=== PATIENT | female | born 1965 | race Caucasian/White ===

== ENCOUNTER → 2019-03-22 10:08 | Outpatient (BNVA) | payer BC, MEDICARE, SELFPAY | PROVIDERS: Family Provider Nurse Practitioner Primary Care; PCP Nurse Practitioner Primary Care; Visit Provider Internal Medicine Rheumatology | DX: M34.9 Systemic sclerosis, unspecified (principal); Z79.899 Other long term (current) drug therapy; I73.00 Raynaud's syndrome without gangrene; Z11.59 Encounter for screening for other viral diseases; M79.7 Fibromyalgia | CPT/HCPCS: 99214 ==

== ENCOUNTER → 2019-06-28 10:53 | Outpatient (BNVA) | payer BC, MEDICARE, SELFPAY | PROVIDERS: Family Provider Nurse Practitioner Primary Care; PCP Nurse Practitioner Primary Care; Visit Provider Internal Medicine Rheumatology | DX: M34.9 Systemic sclerosis, unspecified (principal); Z79.899 Other long term (current) drug therapy; I73.00 Raynaud's syndrome without gangrene; M79.7 Fibromyalgia; L81.9 Disorder of pigmentation, unspecified | CPT/HCPCS: 99214 ==

== ENCOUNTER 2019-07-09 15:43 | Outpatient (CLI) | payer MEDICARE, SELFPAY ==
--- NOTE | 2019-07-09 15:51 | XR_ITS ---
WS: [id number] CHEST 2 VIEWS HISTORY: Shortness of breath COMPARISON: 05/05/2017 Lungs: Clear with no abnormality. No pleural effusion or pneumothorax. Cardiac size: Normal. Mediastinum/Aorta: Normal mediastinum. Bones: Normal. XR/XR chest 2V* [id number] IMPRESSION: Normal chest.
== END 2019-07-09 15:44 | disposition home or self-care (01) ==
LOC: RADWPI 15:51
PROVIDERS: Family Provider Nurse Practitioner Primary Care; PCP Nurse Practitioner Primary Care; Visit Provider Nurse Practitioner Primary Care
DX: R06.02 Shortness of breath (principal)
CPT/HCPCS: 71046

== ENCOUNTER → 2019-10-25 09:53 | Outpatient (BNVA) | payer MEDICARE, SELFPAY | PROVIDERS: Family Provider Nurse Practitioner Primary Care; PCP Nurse Practitioner Primary Care; Visit Provider Internal Medicine Rheumatology | DX: M34.9 Systemic sclerosis, unspecified (principal); Z79.899 Other long term (current) drug therapy; I73.00 Raynaud's syndrome without gangrene; M79.7 Fibromyalgia; L72.9 Follicular cyst of the skin and subcutaneous tissue, unspecified | CPT/HCPCS: 10060; 87070; 87075; 87205; 99214 ==

== ENCOUNTER → 2020-02-14 10:42 | Outpatient (BNVA) | payer MEDICARE, SELFPAY | PROVIDERS: Family Provider Nurse Practitioner Primary Care; PCP Nurse Practitioner Primary Care; Visit Provider Internal Medicine Rheumatology | DX: M34.9 Systemic sclerosis, unspecified (principal); Z79.899 Other long term (current) drug therapy; Z11.1 Encounter for screening for respiratory tuberculosis; I73.00 Raynaud's syndrome without gangrene; M79.7 Fibromyalgia | CPT/HCPCS: 99214 ==

== ENCOUNTER → 2020-05-28 12:02 | Outpatient (BNVA) | payer MEDICARE, SELFPAY | PROVIDERS: Family Provider Nurse Practitioner Primary Care; PCP Nurse Practitioner Primary Care; Visit Provider Internal Medicine Critical Care Medicine | DX: I27.20 Pulmonary hypertension, unspecified (principal) | CPT/HCPCS: 87635 ==

== ENCOUNTER 2020-06-03 12:53 | Outpatient (CLI) | payer MEDICARE, SELFPAY ==
--- NOTE | 2020-06-03 13:40 | PFTS_ITS ---
Date of Study:06/03/20 Date of Dictation: 06/03/2020 MECHANICS: Prebronchodilator forced vital capacity (FVC) is normal. Prebronchodilator forced expiratory volume in one second (FEV1) is normal. FEV1/FVC is normal. There is no postbronchodilator study. FLOW VOLUME LOOP: Normal. LUNG VOLUMES: Not measured DIFFUSING CAPACITY FOR CARBON MONOXIDE: Mildly reduced 77% . INTERPRETATION: The spirometry is normal. Lung volumes not measured and there is mild gas transfer defect. Please correlate clinically. MTDD
== END 2020-06-03 12:54 | disposition home or self-care (01) ==
LOC: RT 12:55
PROVIDERS: PCP Nurse Practitioner Primary Care; Visit Provider Internal Medicine Critical Care Medicine
DX: M34.9 Systemic sclerosis, unspecified (principal)
CPT/HCPCS: 94010; 94729

== ENCOUNTER → 2020-06-12 10:42 | Outpatient (BNVA) | payer MEDICARE, SELFPAY | PROVIDERS: PCP Nurse Practitioner Primary Care; Visit Provider Internal Medicine Rheumatology | DX: M34.9 Systemic sclerosis, unspecified (principal); I73.00 Raynaud's syndrome without gangrene; Z79.899 Other long term (current) drug therapy | CPT/HCPCS: 99214 ==

== ENCOUNTER → 2020-12-10 15:12 | Outpatient (BNVA) | payer MEDICARE, SELFPAY | PROVIDERS: PCP Nurse Practitioner Primary Care; Visit Provider Internal Medicine Rheumatology | DX: M34.9 Systemic sclerosis, unspecified (principal); I73.00 Raynaud's syndrome without gangrene; Z79.899 Other long term (current) drug therapy; Z86.16 Personal history of COVID-19 | CPT/HCPCS: 99214 ==

== ENCOUNTER → 2021-04-06 14:49 | Outpatient (BNVA) | payer MEDICARE, SELFPAY | PROVIDERS: PCP Nurse Practitioner Primary Care; Visit Provider Internal Medicine Rheumatology | DX: M34.9 Systemic sclerosis, unspecified (principal); Z79.899 Other long term (current) drug therapy; I73.00 Raynaud's syndrome without gangrene; Z91.14 Patient's other noncompliance with medication regimen | CPT/HCPCS: 99214 ==

== ENCOUNTER → 2021-06-08 10:39 | Outpatient (BNVA) | payer MEDICARE, SELFPAY | PROVIDERS: PCP Nurse Practitioner Primary Care; Visit Provider Internal Medicine Critical Care Medicine | DX: M34.9 Systemic sclerosis, unspecified (principal); I27.20 Pulmonary hypertension, unspecified; Z86.16 Personal history of COVID-19; M33.90 Dermatopolymyositis, unspecified, organ involvement unspecified | CPT/HCPCS: 71046; 99213 ==

== ENCOUNTER → 2021-07-09 14:01 | Outpatient (BNVA) | payer MEDICARE, SELFPAY | PROVIDERS: PCP Nurse Practitioner Primary Care; Visit Provider Internal Medicine Rheumatology | DX: M34.9 Systemic sclerosis, unspecified (principal); M19.90 Unspecified osteoarthritis, unspecified site; Z79.899 Other long term (current) drug therapy; I73.00 Raynaud's syndrome without gangrene | CPT/HCPCS: 99214 ==

== ENCOUNTER → 2021-09-17 11:29 | Outpatient (BNVA) | payer MEDICARE, SELFPAY | PROVIDERS: PCP Nurse Practitioner Primary Care; Visit Provider Internal Medicine Rheumatology | DX: M34.9 Systemic sclerosis, unspecified (principal); I73.00 Raynaud's syndrome without gangrene; M19.90 Unspecified osteoarthritis, unspecified site; Z79.899 Other long term (current) drug therapy | CPT/HCPCS: 99214 ==

== ENCOUNTER → 2021-12-17 14:36 | Outpatient (BNVA) | payer MEDICARE, SELFPAY | PROVIDERS: PCP Nurse Practitioner Primary Care; Visit Provider Internal Medicine Rheumatology | DX: M34.9 Systemic sclerosis, unspecified (principal); Z79.899 Other long term (current) drug therapy; I73.00 Raynaud's syndrome without gangrene; M19.90 Unspecified osteoarthritis, unspecified site | CPT/HCPCS: 99214 ==

== ENCOUNTER → 2022-03-17 13:19 | Outpatient (BNVA) | payer MEDICARE, SELFPAY | PROVIDERS: PCP Nurse Practitioner Primary Care; Visit Provider Internal Medicine Pulmonary Disease | DX: M34.9 Systemic sclerosis, unspecified (principal); Z79.899 Other long term (current) drug therapy; R06.09 Other forms of dyspnea; Z86.16 Personal history of COVID-19 | CPT/HCPCS: 99214 ==

== ENCOUNTER → 2022-03-17 13:19 | Outpatient (BNVA) | payer MEDICARE, SELFPAY | PROVIDERS: PCP Nurse Practitioner Primary Care; Visit Provider Internal Medicine Pulmonary Disease | DX: R06.02 Shortness of breath (principal); M34.9 Systemic sclerosis, unspecified; Z79.899 Other long term (current) drug therapy; U07.1 COVID-19; I73.00 Raynaud's syndrome without gangrene; R06.09 Other forms of dyspnea | CPT/HCPCS: 80076; 82565; 82785; 85025; 86003; 86140 ==

== ENCOUNTER 2022-04-14 09:56 | Outpatient (CLI) | payer MEDICARE, SELFPAY ==
--- NOTE | 2022-04-14 11:00 | USCV_ITS ---
Marvin Brian Age: 56 Gender: F : 1965 Exam Date: 04/14/2022 11:06 Ordering Phys: Cesario Patten MD Technologist: Lola Chun [place] [facility] [place]: scleroderma BP: 128 / 72 HR: 67 Rhythm: Sinus Technical Quality: Good MEASUREMENTS (Male / Female) Normal Values 2D ECHO LV Diastolic Diameter PLAX 4.4 cm 4.2 - 5.9 / 3.9 - 5.3 cm LV Systolic Diameter PLAX 2.1 cm IVS Diastolic Thickness 0.9 cm 0.6 - 1.0 / 0.6 - 0.9 cm IVS Systolic Thickness 1.7 cm LVPW Diastolic Thickness 0.9 cm 0.6 - 1.0 / 0.6 - 0.9 cm LVPW Systolic Thickness 1.3 cm LVOT Diameter 2.0 cm LV Ejection Fraction 2D Teich 84.0 % LV Ejection Fraction MOD 2C 78.2 % LV Ejection Fraction 2C AL 79.3 % LA Diameter 2.5 cm LA Width 3.2 cm LA Height 3.7 cm RA Width 2.3 cm RA Height 3.2 cm Aorta at Sinotubular Diameter 2.9 cm IVC Diameter 1.6 cm M-MODE MV E Point Septal Separation 0.7 cm DOPPLER AV Peak Velocity 110.0 cm/s LVOT Peak Velocity 89.0 cm/s AV Area Cont Eq vti 2.8 cm squared AV Area Cont Eq pk 2.6 cm squared MV Peak Velocity 84.0 cm/s MV Area PHT 3.6 cm squared Mitral E to A Ratio 1.1 MV E' Velocity 44.5 cm/s Mitral E to MV E' Ratio 11.6 Mitral E to LV E' Lateral Ratio 11.9 Mitral E to LV E' Septal Ratio 11.4 TR Peak Velocity 65.0 cm/s TR Peak Gradient 1.7 mmHg Right Atrial Pressure 5.0 mmHg Pulmonary Artery Systolic Pressu 6.7 mmHg PV Peak Velocity 74.0 cm/s RV Acceleration Time 0.1 s RV Ejection Time 0.3 s RV AcT/ET 0.5 FINDINGS Left Ventricle Normal left ventricular size and systolic function, EF 71 %. No regional wall motion abnormalities. Right Ventricle The right ventricle is normal in size and function. Right Atrium The right atrium is normal in size. Left Atrium The left atrium is normal in size. Mitral Valve Mild mitral valve regurgitation. Thickened mitral valve. Aortic Valve Thickened aortic valve. Tricuspid Valve No gross abnormalities noted Pulmonic Valve No gross abnormalities noted Pericardium Normal pericardium without effusion. Aorta Normal ascending aorta dimension. IVC Normal inferior vena cava. CONCLUSIONS Normal left ventricular size and systolic function, EF 71 %. No regional wall motion abnormalities. Mild mitral valve regurgitation. Thickened mitral valve. Thickened aortic valve. There is no pericardial effusion. There are no intracardiac masses. Compared to the study from 11/27/2018, there may not be a significant change Dr Jair Unger MD FACC (Electronically Signed) Final Date: 17 April 2022 19:20 S
== END 2022-04-14 09:57 | disposition home or self-care (01) ==
LOC: RT 10:00
PROVIDERS: PCP Nurse Practitioner Primary Care; Visit Provider Internal Medicine Pulmonary Disease
DX: I73.00 Raynaud's syndrome without gangrene (principal); M34.9 Systemic sclerosis, unspecified; I08.0 Rheumatic disorders of both mitral and aortic valves
CPT/HCPCS: 80076; 82565; 82785; 85025; 86003; 86140; 93306; 94010; 94726; 94729

== ENCOUNTER → 2022-04-19 13:29 | Outpatient (BNVA) | payer MEDICARE, SELFPAY | PROVIDERS: PCP Nurse Practitioner Primary Care; Visit Provider Internal Medicine Rheumatology | DX: M34.9 Systemic sclerosis, unspecified (principal); Z79.899 Other long term (current) drug therapy; M19.90 Unspecified osteoarthritis, unspecified site; I73.00 Raynaud's syndrome without gangrene | CPT/HCPCS: 99214 ==

== ENCOUNTER → 2022-07-08 09:28 | Outpatient (BNVA) | payer MEDICARE, SELFPAY | PROVIDERS: PCP Nurse Practitioner Primary Care; Visit Provider Internal Medicine Rheumatology | DX: M34.9 Systemic sclerosis, unspecified (principal); Z79.899 Other long term (current) drug therapy; M19.90 Unspecified osteoarthritis, unspecified site; I73.00 Raynaud's syndrome without gangrene | CPT/HCPCS: 99214 ==

== ENCOUNTER → 2022-10-13 09:54 | Outpatient (BNVA) | payer MEDICARE, SELFPAY | PROVIDERS: PCP Nurse Practitioner Primary Care; Visit Provider Internal Medicine Rheumatology | DX: Z79.899 Other long term (current) drug therapy (principal); M19.90 Unspecified osteoarthritis, unspecified site; L94.2 Calcinosis cutis; I73.00 Raynaud's syndrome without gangrene | CPT/HCPCS: 99214 ==

== ENCOUNTER → 2022-10-15 09:58 | Outpatient (BNVA) | payer MEDICARE, SELFPAY | PROVIDERS: PCP Nurse Practitioner Primary Care; Visit Provider Internal Medicine Pulmonary Disease | DX: M34.9 Systemic sclerosis, unspecified (principal); U07.1 COVID-19; R06.09 Other forms of dyspnea; J30.1 Allergic rhinitis due to pollen | CPT/HCPCS: 99214 ==

== ENCOUNTER 2022-10-29 12:49 | Outpatient (CLI) | payer MEDICARE, SELFPAY ==
--- NOTE | 2022-10-29 13:00 | CT_ITS ---
WS: [id number] CT CHEST CT-HIGH RESOLUTION, NONCONTRAST. HISTORY: Interstitial lung disease. Scleroderma. Technique: High-resolution chest CT is performed in inspiration, expiration, supine and prone kaelao jian. All CT scans at [facility] use at least one of these dose optimization techniques: automated exposure control; mA and/or kV adjustment per patient size (includes targeted exams where dose is mat ched to clinical indication); or iterative reconstruction. DLP: 1300.57 mGy.cm COMPARISON: None. Findings: Lung volumes are low normal. Multilobar areas of mild bilateral interstitial thickening and mild groundglass opacification. Single focus of traction bronchiectasis LEFT upper lobe. Interstitia l areas and groundglass attenuation are slightly more prominent in the upper lobes. No mass or nodule s. No thin-walled subpleural cysts which can be seen with scleroderma. No mediastinal or hilar adenop athy. There are a few lymph nodes but these are nonspecific. The areas of interstitial thickening and reticulation in the upper lobes do not significantly improve with prone positioning. Lung volumes do change with expiration. There is a small circumferential pericardial effusion. The esophagus is dilated and contains debris t o above the level of the moris. No abnormality in the upper abdomen. Impression: 1. Dilated esophagus filled with debris to just above the level of the moris. 2. Nonspecific interstitial pneumonia (NSIP) consists of interstitial thickening and groundglass atte nuation and focal LEFT upper lobe traction bronchiectasis. These changes are suggestive for scleroder ma but normally these changes are in the lower lung griffin. No subpleural cyst. 3. Pericardial pleural effusion. 4. No pulmonary mass and no adenopathy.
== END 2022-10-29 12:50 | disposition home or self-care (01) ==
PROVIDERS: PCP Nurse Practitioner Primary Care; Visit Provider Internal Medicine Pulmonary Disease
DX: J18.9 Pneumonia, unspecified organism (principal); M34.9 Systemic sclerosis, unspecified; I31.39 Other pericardial effusion (noninflammatory)
CPT/HCPCS: 71250

== ENCOUNTER → 2023-02-16 10:27 | Outpatient (BNVA) | payer MEDICARE, SELFPAY | PROVIDERS: PCP Nurse Practitioner Primary Care; Visit Provider Internal Medicine Rheumatology | DX: M19.90 Unspecified osteoarthritis, unspecified site (principal); Z79.899 Other long term (current) drug therapy; M25.511 Pain in right shoulder | CPT/HCPCS: 20610; 99214; J1030 ==

== ENCOUNTER → 2023-06-17 09:18 | Outpatient (BNVA) | payer MEDICARE, SELFPAY | PROVIDERS: PCP Nurse Practitioner Primary Care; Visit Provider Internal Medicine Pulmonary Disease | DX: M34.9 Systemic sclerosis, unspecified (principal); J45.20 Mild intermittent asthma, uncomplicated; Z86.16 Personal history of COVID-19 | CPT/HCPCS: 99214 ==

== ENCOUNTER → 2023-06-22 10:14 | Outpatient (BNVA) | payer MEDICARE, SELFPAY | PROVIDERS: PCP Nurse Practitioner Primary Care; Visit Provider Internal Medicine Rheumatology | DX: M34.9 Systemic sclerosis, unspecified; Z79.899 Other long term (current) drug therapy; I73.00 Raynaud's syndrome without gangrene; M19.90 Unspecified osteoarthritis, unspecified site | CPT/HCPCS: 99214 ==

== ENCOUNTER → 2023-06-24 11:08 | Outpatient (BNVA) | payer MEDICARE, SELFPAY | PROVIDERS: PCP Nurse Practitioner Primary Care; Visit Provider Nurse Practitioner Women's Health | DX: Z01.419 Encounter for gynecological examination (general) (routine) without abnormal findings (principal) | CPT/HCPCS: 87624 ==

== ENCOUNTER → 2023-12-14 09:58 | Outpatient (BNVA) | payer MEDICARE, SELFPAY | PROVIDERS: PCP Nurse Practitioner Primary Care; Visit Provider Internal Medicine Rheumatology | DX: M34.9 Systemic sclerosis, unspecified; I73.00 Raynaud's syndrome without gangrene; M19.90 Unspecified osteoarthritis, unspecified site; Z79.899 Other long term (current) drug therapy | CPT/HCPCS: 99214 ==

== ENCOUNTER → 2024-06-13 10:21 | Outpatient (BNVA) | payer MEDICARE, SELFPAY | PROVIDERS: PCP Nurse Practitioner Primary Care; Visit Provider Internal Medicine Rheumatology | DX: L94.2 Calcinosis cutis (principal); I73.00 Raynaud's syndrome without gangrene; Z79.899 Other long term (current) drug therapy; M19.90 Unspecified osteoarthritis, unspecified site | CPT/HCPCS: 99214 ==

== ENCOUNTER → 2024-07-23 15:44 | Outpatient (BNVA) | payer MEDICARE, SELFPAY | PROVIDERS: PCP Nurse Practitioner Primary Care; Visit Provider Nurse Practitioner Women's Health | DX: N84.1 Polyp of cervix uteri (principal) | CPT/HCPCS: 88305 ==

== ENCOUNTER → 2024-10-24 10:03 | Outpatient (BNVA) | payer MEDICARE, SELFPAY | PROVIDERS: PCP Nurse Practitioner Primary Care; Visit Provider Internal Medicine Rheumatology | DX: M34.9 Systemic sclerosis, unspecified (principal); I73.00 Raynaud's syndrome without gangrene; Z79.899 Other long term (current) drug therapy; M19.90 Unspecified osteoarthritis, unspecified site; R06.09 Other forms of dyspnea | CPT/HCPCS: 99215 ==

== ENCOUNTER → 2024-11-19 13:37 | Outpatient (BNVA) | payer MEDICARE, SELFPAY | PROVIDERS: PCP Nurse Practitioner Primary Care; Visit Provider Internal Medicine | DX: J98.4 Other disorders of lung (principal); J84.9 Interstitial pulmonary disease, unspecified; M34.9 Systemic sclerosis, unspecified; J45.20 Mild intermittent asthma, uncomplicated; J96.10 Chronic respiratory failure, unspecified whether with hypoxia or hypercapnia; J44.9 Chronic obstructive pulmonary disease, unspecified | CPT/HCPCS: 99214; Q3014 ==

== ENCOUNTER 2024-12-20 11:39 | Outpatient (CLI) | payer MEDICARE, SELFPAY | END 2024-12-20 11:40 | disposition home or self-care (01) | LOC: RT 11:40 | PROVIDERS: PCP Nurse Practitioner Primary Care; Visit Provider Internal Medicine | DX: J44.9 Chronic obstructive pulmonary disease, unspecified (principal) | CPT/HCPCS: 94010; 94726; 94729 ==

== ENCOUNTER 2024-12-21 12:33 | Outpatient (CLI) | payer MEDICARE, SELFPAY ==
--- NOTE | 2024-12-21 12:38 | CTR_ITS ---
PROCEDURE INFORMATION: Exam: CT Chest Without Contrast, Diagnostic, High Resolution Exam date and time: 12/21/2024 12:43 PM Age: 59 years old Clinical indication: Condition or Disease; Lung condition and disease; interstitial lung dz, scleroderma, HX of COVID TECHNIQUE: Imaging protocol: Diagnostic computed tomography of the chest without contrast. Exam was performed with high resolution protocol. Radiation optimization: All CT scans at this facility use at least one of these dose optimization techniques: automated exposure control; mA and/or kV adjustment per patient size (includes targeted exams where dose is matched to clinical indication); or iterative reconstruction. COMPARISON: 1. CT chest wo con [id number] 10/29/2022 1:11 PM 2. CR XR chest 2V* [id number] 06/08/2021 11:21 AM RADIATION DOSE METRICS: Total DLP (mGy-cm): 944.13 FINDINGS: Lungs: Lungs are adequately aerated. No suspicious pulmonary nodule/s. There are a few oval 3 mm nodules in the right lung that are relatively juxtapleural and likely benign, unchanged from October 2022. No focal consolidation is appreciated. Pleural spaces: Pleural-parenchymal scarring is present in the left upper lobe. There are multiple areas of ground-glass opacity with some areas of mild bronchiectasis predominantly in the upper lungs. There is no significant reticulation or honeycombing. Heart: Cardiac size is normal. Small to moderate amount of water density pericardial fluid, unchanged from previous. Coronary arteries: No coronary artery calcifications. Esophagus: There is some fluid throughout the esophagus with some debris in the cervical esophagus likely representing gastroesophageal reflux. Mediastinal space: No mediastinal mass or hematoma. Vasculature: Pulmonary vascularity is normal. Lymph nodes: No supraclavicular, axillary or mediastinal adenopathy. Gallbladder and biliary ducts: Indeterminate calcification at the inferior margin of the gallbladder. Is unclear if this is volume averaging with a structure below or represents some dependent gallstones. Bones/joints: The spine, sternum, ribs, and pectoral girdles are unremarkable except for some mild degenerative changes in the thoracic spine. Soft tissues: Soft tissues of the visible body wall demonstrate no masses, ectopic air or fluid collections. CT/CT chest w/o HI-Res(Pulm Only) IMPRESSION: 1. Increased degree of nonspecific ground-glass opacity in the lungs compared with previous study, more prominent in the upper lungs. Appearance is most consistent with ILD organizing pneumonia. There is some fluid throughout the esophagus with some debris in the cervical esophagus likely representing gastroesophageal reflux. 2. Indeterminate calcification at the inferior margin of the gallbladder. Is unclear if this is volume averaging with a structure below or represents some dependent gallstones.
== END 2024-12-21 12:34 | disposition home or self-care (01) ==
LOC: RAD 12:34
PROVIDERS: PCP Nurse Practitioner Primary Care; Visit Provider Internal Medicine
DX: J84.9 Interstitial pulmonary disease, unspecified (principal); K21.9 Gastro-esophageal reflux disease without esophagitis; K80.20 Calculus of gallbladder without cholecystitis without obstruction
CPT/HCPCS: 71250

== ENCOUNTER → 2025-01-01 13:28 | Outpatient (BNVA) | payer MEDICARE, SELFPAY | PROVIDERS: PCP Nurse Practitioner Primary Care; Visit Provider Surgery | DX: K80.20 Calculus of gallbladder without cholecystitis without obstruction (principal) | CPT/HCPCS: 99204 ==

== ENCOUNTER 2025-01-16 09:18 | Outpatient (CLI) | payer MEDICARE, SELFPAY ==
--- NOTE | 2025-01-16 09:30 | US_ITS ---
WS: [id number] RIGHT UPPER QUADRANT ULTRASOUND HISTORY: gallstones COMPARISON: None available. Liver: 14.5 cm in length. Normal size liver. Hepatic cyst measures 1.1 x 0.9 x 0.3 cm. No intrahepatic duct dilatation. Portal Vein: Normal hepatopetal flow with monophasic waveform. Gallbladder: Normally distended gallbladder with no stones or wall thickening. CBD: 0.2 cm Pancreas: Normal size and echogenicity. Right kidney: 8.8 cm in length. Low normal size kidney. No hydronephrosis. Aorta and IVC: Unremarkable abdominal aorta and IVC. No ascites. US/US gall bladder [id number] IMPRESSION: 1. Normal gallbladder. No cholelithiasis. 2. Hepatic cyst, 1.1 cm.
== END 2025-01-16 09:19 | disposition home or self-care (01) ==
LOC: RAD 09:19
PROVIDERS: PCP Nurse Practitioner Primary Care; Visit Provider Surgery
DX: K80.20 Calculus of gallbladder without cholecystitis without obstruction (principal); K76.89 Other specified diseases of liver
CPT/HCPCS: 76705